=== PATIENT | female | born 1980 | race Caucasian/White ===

== ENCOUNTER 2017-11-10 12:07 | Outpatient (CLI) | payer OTHER ==
[~2017-11-10] VITALS: Ht 162.6 cm; Wt 86.8 kg
[~2017-11-10 12:07] MED LIST: PREN1TAB60 PO
[2017-11-10] MEDS ORDERED: TERBUTALINE 1 MG/ML, 1ML ONE (12:35)
[2017-11-10] MEDS ORDERED: PLEASE ENTER HEIGHT AND WEIGHT MC SCH (13:00)
[2017-11-10] MEDS ORDERED: TERBUTALINE 1 MG/ML, 1ML IV ONE (13:00)
== END 2017-11-10 14:11 | disposition home or self-care (01) ==
LOC: LDOP 12:07
PROVIDERS: ATTEND Obstetrics & Gynecology
DX: O09.523 Supervision of elderly multigravida, third trimester (principal); O32.2XX0 Maternal care for transverse and oblique lie, not applicable or unspecified; Z3A.37 37 weeks gestation of pregnancy
CPT/HCPCS: 59025; 99211; G0463

== ENCOUNTER 2017-11-23 06:00 | Inpatient (IN) | payer OTHER ==
[~2017-11-23] VITALS: Ht 162.6 cm; Wt 90.0 kg
[2017-11-23] MEDS ORDERED: OXYTOCIN 30U/ 0.9% NaCL 500ML 500 ML IV ONE (06:01)
[2017-11-23] MEDS ORDERED: OXYTOCIN 30U/ 0.9% NaCL 500ML 500 ML IV PRN (06:01)
[2017-11-23] MEDS: D5%-LACTATED RINGERS 1,000 ML IV SCH ×3 (06:01→22:01)
[2017-11-23] MEDS ORDERED: OXYTOCIN 30U/ 0.9% NaCL 500ML 500 ML ONE ×2 (06:05→15:28)
[2017-11-23] MEDS ORDERED: NEWBORN KIT ONE ×2 (06:05→06:58)
[2017-11-23 06:08] VITALS: BP 122/86
[2017-11-23] MEDS: LACTATED RINGERS 1,000 ML IV SCH ×5 (06:26→22:01)
[2017-11-23] MEDS ORDERED: FENTANYL PF 100 MCG/2ML IVPush PRN (06:30)
[2017-11-23] MEDS ORDERED: ONDANSETRON 2MG/ML, 2ML IVPush PRN (06:30)
[2017-11-23] MEDS ORDERED: FENTANYL PF 100 MCG/2ML IV PRN (06:30)
[2017-11-23 07:07] LABS: BASOPHILS # (AUTO) 0.03 x10^3/uL (0-0.1); BASOPHILS % (AUTO) 0 % (0-1); EOSINOPHILS # (AUTO) 0.08 x10^3/uL (0-0.4); EOSINOPHILS % (AUTO) 1 % (1-7); LYMPHOCYTES # (AUTO) 0.83 x10^3/uL (1-3.4); LYMPHOCYTES % (AUTO) 8 % (22-44); MD NO; MEAN CORPUSCULAR HEMOGLOBIN 29.7 pg (27.0-34.8); MEAN CORPUSCULAR VOLUME 87.4 fL (80-100); MEAN PLATELET VOLUME 8.6 fL (7.4-10.4); MONOCYTES # (AUTO) 0.52 x10^3/uL (0.2-0.8); MONOCYTES % (AUTO) 5 % (2-9); NEUTROPHILS # (AUTO) 9.25 x10^3/uL (1.8-6.8); NEUTROPHILS % (AUTO) 86 % (42-75); PLATELET COUNT 208 x10^3/uL (130-400); RED BLOOD COUNT 4.23 x10^6/uL (3.82-5.3); RED CELL DISTRIBUTION WIDTH 13.6 % (9.6-15.2)
[2017-11-23] MEDS ORDERED: ONDANSETRON 2MG/ML, 2ML ONE (07:07)
[2017-11-23] MEDS ORDERED: FENTANYL/BUPIV./NS/PF 250 ML EPIDCONT ONE (08:50)
[2017-11-23] MEDS ORDERED: BUPIVACAINE 0.25% ONE ×2 (08:50→14:12)
[2017-11-23] MEDS ORDERED: FENTANYL PF 100 MCG/2ML ONE (08:50)
[2017-11-23] MEDS: FENTANYL/BUPIV./NS/PF 250 ML EPIDCONT SCH (09:13)
[2017-11-23] MEDS ORDERED: LACTATED RINGERS 1,000 ML IVBOLUS PRN (09:30)
[2017-11-23] MEDS: OXYTOCIN 30U/ 0.9% NaCL 500ML 500 ML IV SCH (15:09)
[2017-11-23] MEDS ORDERED: IBUPROFEN 600 MG TABLET ONE (15:28)
[2017-11-23] MEDS ORDERED: ACETAMINOPHEN 325 MG TABLET PO PRN (15:30)
[2017-11-23] MEDS ORDERED: OXYcodone/APAP 5/325MG TABLET PO PRN (15:30)
[2017-11-23] MEDS ORDERED: MISOPROSTOL 200 MCG TABLET PR PRN (15:30)
[2017-11-23] MEDS ORDERED: ONDANSETRON 2MG/ML, 2ML IV PRN (15:30)
[2017-11-23] MEDS ORDERED: METHYLERGONOVINE 0.2 MG/ML IM PRN (15:30)
[2017-11-23] MEDS: IBUPROFEN 600 MG TABLET PO PRN ×2 (15:33→22:07)
[2017-11-23 17:20] VITALS: BP 129/80
[2017-11-23 19:10] VITALS: BP 135/75
[2017-11-23] MEDS: DOCUSATE 100 MG CAPSULE PO PRN (19:58)
[2017-11-23] MEDS: OXYcodone/APAP 5/325MG TABLET PO PRN (22:07)
[2017-11-24] MEDS: OXYTOCIN 30U/ 0.9% NaCL 500ML 500 ML IV SCH (01:09)
[2017-11-24] MEDS: LACTATED RINGERS 1,000 ML IV SCH ×2 (01:13→06:01)
[2017-11-24] MEDS: OXYcodone/APAP 5/325MG TABLET PO PRN ×3 (03:17→09:46)
[2017-11-24] MEDS: IBUPROFEN 600 MG TABLET PO PRN ×3 (03:17→15:17)
[2017-11-24 03:27] VITALS: BP 130/83
[2017-11-24 05:16] LABS: BASOPHILS # (AUTO) 0.03 x10^3/uL (0-0.1); BASOPHILS % (AUTO) 0 % (0-1); EOSINOPHILS # (AUTO) 0.13 x10^3/uL (0-0.4); EOSINOPHILS % (AUTO) 1 % (1-7); LYMPHOCYTES # (AUTO) 1.71 x10^3/uL (1-3.4); LYMPHOCYTES % (AUTO) 18 % (22-44); MD NO; MEAN CORPUSCULAR HEMOGLOBIN 30.1 pg (27.0-34.8); MEAN CORPUSCULAR HGB CONC 33.8 g/dL (32.4-35.8); MEAN CORPUSCULAR VOLUME 89.2 fL (80-100); MEAN PLATELET VOLUME 8.4 fL (7.4-10.4); MONOCYTES # (AUTO) 0.75 x10^3/uL (0.2-0.8); MONOCYTES % (AUTO) 8 % (2-9); NEUTROPHILS # (AUTO) 7.02 x10^3/uL (1.8-6.8); NEUTROPHILS % (AUTO) 73 % (42-75); PLATELET COUNT 224 x10^3/uL (130-400); RED BLOOD COUNT 3.99 x10^6/uL (3.82-5.3); RED CELL DISTRIBUTION WIDTH 13.7 % (9.6-15.2)
[2017-11-24] MEDS: D5%-LACTATED RINGERS 1,000 ML IV SCH (06:01)
[2017-11-24] MEDS: FENTANYL/BUPIV./NS/PF 250 ML EPIDCONT SCH (06:03)
[2017-11-24 08:20] VITALS: BP 124/83
[2017-11-24] MEDS ORDERED: PRENATAL VIT/IRON/FA 1 EACH TABLET PO SCH (09:00)
[2017-11-24] MEDS: DOCUSATE 100 MG CAPSULE PO PRN (09:42)
[2017-11-24] MEDS ORDERED: IBUP-1222 PO (14:09)
== END 2017-11-24 15:44 | disposition home or self-care (01) | DRG 775 ==
LOC: LDIP 06:00 → 2NW 17:15
PROVIDERS: ADMIT Obstetrics & Gynecology; ATTEND Obstetrics & Gynecology
PROC: 10E0XZZ Delivery of Products of Conception, External Approach (ICD-10-PCS; principal; 2017-11-23)
PROC: 3E0P3VZ Introduction of Hormone into Female Reproductive, Percutaneous Approach (ICD-10-PCS; 2017-11-23)
PROC: 3E0R3BZ Introduction of Anesthetic Agent into Spinal Canal, Percutaneous Approach (ICD-10-PCS; 2017-11-23)
PROC: 00HU33Z Insertion of Infusion Device into Spinal Canal, Percutaneous Approach (ICD-10-PCS; 2017-11-23)
DX: O80 Encounter for full-term uncomplicated delivery (principal); Z37.0 Single live birth; Z3A.39 39 weeks gestation of pregnancy
CPT/HCPCS: 36415; 85025; 86850; 86900; J2405; J2590; J7120

== ENCOUNTER 2019-01-29 20:53 | Emergency (ER) | payer OTHER ==
[~2019-01-29] VITALS: Ht 162.6 cm; Wt 69.6 kg
[~2019-01-29 20:53] MED LIST changes: +IBUP-1222 PO
[2019-01-29 21:34] LABS: BASOPHILS # (AUTO) 0.06 x10^3/uL (0-0.1); BASOPHILS % (AUTO) 1 % (0-1); EOSINOPHILS # (AUTO) 0.12 x10^3/uL (0-0.4); EOSINOPHILS % (AUTO) 2 % (1-7); LYMPHOCYTES # (AUTO) 0.69 x10^3/uL (1-3.4); LYMPHOCYTES % (AUTO) 12 % (22-44); MD NO; MEAN CORPUSCULAR HEMOGLOBIN 29.7 pg (27.0-34.8); MEAN CORPUSCULAR HGB CONC 34.1 g/dL (32.4-35.8); MEAN CORPUSCULAR VOLUME 87.2 fL (80-100); MEAN PLATELET VOLUME 8.2 fL (7.4-10.4); MONOCYTES # (AUTO) 0.33 x10^3/uL (0.2-0.8); MONOCYTES % (AUTO) 5 % (2-9); NEUTROPHILS # (AUTO) 4.81 x10^3/uL (1.8-6.8); NEUTROPHILS % (AUTO) 80 % (42-75); PLATELET COUNT 214 x10^3/uL (130-400); RED BLOOD COUNT 4.52 x10^6/uL (3.82-5.3); RED CELL DISTRIBUTION WIDTH 12.8 % (9.6-15.2)
[2019-01-29 21:41] LABS: MICROSCOPIC NOT IND
[2019-01-29 21:44] LABS: CULTURE INDICATED? NO
[2019-01-29 21:46] LABS: ALBUMIN 4.4 g/dL (3.4-5.0); ANION GAP 5 mmol/L (5-15); CALCIUM 8.6 mg/dL (8.5-10.1); CHLORIDE 109 mmol/L (98-107); CREATININE 0.84 mg/dL (0.55-1.02)
--- NOTE | 2019-01-29 21:47 | NUR ---
PT C/O TIREDNESS AND LOWER BACK PAIN, THINKS SHE MAY HAVE 'A UTI GONE WRONG'. PT PLACED ON PULSE OX TO MONITOR HR, GIVEN CALL LLIGHT, SAFETY MEASURES IN PLACE
--- NOTE | 2019-01-29 22:00 | NUR ---
PT TALKING WITH SISTER, NO DISTRESS NOTED
[2019-01-29 22:19] VITALS: BP 135/84
--- NOTE | 2019-01-29 22:20 | NUR ---
Patient/Caregiver given discharge instructions and they have confirmed that they understand the instructions. Patient ambulatory with steady gait.
== END 2019-01-29 22:23 | disposition home or self-care (01) ==
LOC: ED 22:05
DX: S39.012A Strain of muscle, fascia and tendon of lower back, initial encounter (principal); B34.9 Viral infection, unspecified; X58.XXXA Exposure to other specified factors, initial encounter; Y93.89 Activity, other specified; Y92.89 Other specified places as the place of occurrence of the external cause; Y99.8 Other external cause status
CPT/HCPCS: 36415; 80048; 81003; 82040; 84703; 85025; 99283

== ENCOUNTER 2019-01-31 17:33 | Emergency (ER) | payer OTHER ==
[~2019-01-31] VITALS: Ht 162.6 cm; Wt 67.7 kg
--- NOTE | 2019-01-31 18:12 | NUR ---
PT AMBULATED STEADILY TO ROOM FROM LOBBY WITH RN AND FRIEND.
--- NOTE | 2019-01-31 18:19 | NUR ---
PT CO [place] X TWO DAYS; FEVER "104" YESTERDAY. +SENSITIVITY TO NOISE; DENIES N/V/VISION CHANGES/NECK PAIN. FACE SYMMETRICAL, SPEECH CLEAR, +STRENGTH X4. PT REPORTS BEING SEEN IN ED 'A FEW DAYS AGO' FOR LBP AND RULE OUT UTI, "THOSE SYMPTOMS FEEL MUCH BETTER'. BP/SPO2/ECG MONITORING IN PLACE. NSR ON MONITOR. SO AT BEDSIDE.
[2019-01-31 18:23] LABS: BASOPHILS # (AUTO) 0.01 x10^3/uL (0-0.1); BASOPHILS % (AUTO) 0 % (0-1); EOSINOPHILS # (AUTO) 0.02 x10^3/uL (0-0.4); EOSINOPHILS % (AUTO) 1 % (1-7); LYMPHOCYTES # (AUTO) 1.14 x10^3/uL (1-3.4); LYMPHOCYTES % (AUTO) 38 % (22-44); MD NO; MEAN CORPUSCULAR HEMOGLOBIN 29.1 pg (27.0-34.8); MEAN CORPUSCULAR HGB CONC 33.3 g/dL (32.4-35.8); MEAN CORPUSCULAR VOLUME 87.3 fL (80-100); MEAN PLATELET VOLUME 8.8 fL (7.4-10.4); MONOCYTES % (AUTO) 13 % (2-9); NEUTROPHILS # (AUTO) 1.45 x10^3/uL (1.8-6.8); NEUTROPHILS % (AUTO) 48 % (42-75); PLATELET COUNT 197 x10^3/uL (130-400); RED CELL DISTRIBUTION WIDTH 12.3 % (9.6-15.2)
[2019-01-31 18:27] LABS: RAPID INFLUENZA A Negative (Negative); RAPID INFLUENZA B Negative (Negative)
[2019-01-31 18:32] LABS: ALANINE AMINOTRANSFERASE 24 U/L (12-78); ALBUMIN 4.3 g/dL (3.4-5.0); ANION GAP 4 mmol/L (5-15); CALCIUM 8.8 mg/dL (8.5-10.1); CHLORIDE 105 mmol/L (98-107); CREATININE 0.79 mg/dL (0.55-1.02)
[2019-01-31 18:33] LABS: ALKALINE PHOSPHATASE 58 U/L (45-117); BILIRUBIN,TOTAL 0.5 mg/dL (0.2-1.0); TOTAL PROTEIN 7.9 g/dL (6.4-8.2)
[2019-01-31] MEDS ORDERED: LIDOCAINE-MPF 1%, 5ML ONE (18:52)
--- NOTE | 2019-01-31 18:56 | NUR ---
SET UP READY FOR LP. CONSENT SIGNED AND AT BEDSIDE.
--- NOTE | 2019-01-31 19:06 | NUR ---
MELANIE STREETER AT BEDSIDE FOR LP.
[2019-01-31] MEDS ORDERED: DIAZEPAM 5 MG TABLET ONE (19:40)
--- NOTE | 2019-01-31 19:43 | NUR ---
LP COMPLETE. PT SUPINE. PT MEDICATED PER EMAR FOR W[place], 08/06
[2019-01-31 19:48] LABS: GLUCOSE, CSF 59 mg/dL (40-80); TOTAL PROTEIN,CSF 37 mg/dL (15-45)
[2019-01-31] MEDS ORDERED: LIDOCAINE-MPF 1%, 5ML INFIL ONE (20:00)
[2019-01-31] MEDS ORDERED: DIAZEPAM 5 MG TABLET PO ONE (20:00)
--- NOTE | 2019-01-31 20:32 | NUR ---
PT RESTING QUIETLY, DARKENED ROOM AND LAYING FLAT, REPORTS PAIN 7/10 WHICH SHE REPORTS IS AN IMPROVEMENT FROM HER PREVIOUS 08/06. NSR ON MONITOR WITHOUT ECTOPY
[2019-01-31 20:35] VITALS: BP 120/73
--- NOTE | 2019-01-31 21:40 | NUR ---
PT REPORTS SIGNIFICANT IMPROVEMENT IN [place] W/ MEDICATIONS. DC EDUCATION PROVIDED, PT DEMONSTRATES UNDERSTANDING. PT AMBULATED STEADILY TO DC WITH RN AND SO. SO TO TRANSPORT PT HOME.
== END 2019-01-31 21:42 | disposition home or self-care (01) ==
LOC: ED 18:34
DX: B34.9 Viral infection, unspecified (principal); G44.219 Episodic tension-type headache, not intractable; M79.10 Myalgia, unspecified site
CPT/HCPCS: 36415; 62270; 71045; 80053; 82945; 84157; 85025; 87070; 87205; 87252; 87400; 89051; 99284

== ENCOUNTER 2019-02-03 12:32 | Emergency (ER) | payer OTHER ==
[~2019-02-03] VITALS: Ht 162.6 cm; Wt 67.7 kg
[2019-02-03] MEDS ORDERED: ICN CAFFEINE 5 MG/ML IV IV STA (13:06)
[2019-02-03] MEDS ORDERED: METOCLOPRAMIDE 5 MG/ML, 2ML ONE (13:09)
[2019-02-03] MEDS ORDERED: DIPHENHYDRAMINE 50 MG/ML, 1ML ONE (13:09)
[2019-02-03 13:24] VITALS: BP 120/68
--- NOTE | 2019-02-03 13:25 | NUR ---
PT HERE FOR INCREASED EPISODES OF [place]. PT WAS SEEN HERE TWO DAYS AGO AND HAD EXTENSIVE WORKUP WITH SPIBNAL TAP. PT REPORTS INCREASED W[place] AND NAUSEA AND VERTIGO. PT ON ARRIVAL DOES NOT APPEAR UNCOMFORTABLE BUT DOES BECAOME LIGHTHEADED WITH POSITION CHANGING. PT CONNECTED TO MONITORS AND CALL LIGHT IN REACH. VSS. PIV PLACED.
[2019-02-03] MEDS ORDERED: SODIUM CHLORIDE 0.9% 1,000ML IVBOLUS ONE (13:30)
[2019-02-03] MEDS ORDERED: DIPHENHYDRAMINE 50 MG/ML, 1ML IVPush ONE (13:30)
[2019-02-03] MEDS ORDERED: METOCLOPRAMIDE 5 MG/ML, 2ML IVPush ONE (13:30)
--- NOTE | 2019-02-03 13:58 | NUR ---
MD AT THIS TIME DOES NOT WANT ORTHOSTATICS.
--- NOTE | 2019-02-03 14:39 | NUR ---
PT REPORTING RELIEF AT THIS TIME.
--- NOTE | 2019-02-03 15:03 | NUR ---
Patient/Caregiver given discharge instructions and they have confirmed that they understand the instructions. Patient ambulatory with steady gait.
== END 2019-02-03 15:05 | disposition home or self-care (01) ==
LOC: ED 13:39
DX: G97.1 Other reaction to spinal and lumbar puncture (principal)
CPT/HCPCS: 70450; 96374; 96375; 99284; J1200; J2765; J7030

== ENCOUNTER 2019-04-02 10:10 | Outpatient (CLI) | payer OTHER ==
[2019-04-02] MEDS ORDERED: NONE PER PT (10:47)
[2019-04-10] MEDS ORDERED: DIPHENHYDRAMINE 50 MG/ML, 1ML IVPush PRN (08:30)
[2019-04-10] MEDS ORDERED: FENTANYL PF 100 MCG/2ML IV PRN (08:30)
[2019-04-10] MEDS ORDERED: OXYcodone 5 MG/5 ML ORAL.SOL UDC PO PRN (08:30)
[2019-04-10] MEDS ORDERED: PROCHLORPERAZINE 5 MG/ML, 2ML IV PRN (08:30)
[2019-04-10] MEDS ORDERED: hydrALAzine 20 MG/ML, 1ML IV PRN (08:30)
[2019-04-10] MEDS ORDERED: MEPERIDINE/PF 25MG/0.5ML IVPush PRN (08:30)
[2019-04-10] MEDS ORDERED: LABETALOL 5MG/ML, 20ML IV PRN (08:30)
[2019-04-10] MEDS ORDERED: HALOPERIDOL 5 MG/ML IV PRN (08:30)
[2019-04-10] MEDS ORDERED: HYDROmorphone 2 MG/ML, 1ML IVPush PRN (08:30)
[2019-04-10] MEDS ORDERED: PROMETHAZINE 25 MG/ML, 1ML IV PRN (08:30)
[2019-04-10] MEDS ORDERED: METOPROLOL 1 MG/ML, 5ML IV PRN (08:30)
[2019-04-10] MEDS ORDERED: FENTANYL PF 100 MCG/2ML ONE ×2 (13:06→13:39)
== END 2019-04-02 23:59 | disposition home or self-care (01) ==
LOC: STAR 10:10
PROVIDERS: ATTEND Obstetrics & Gynecology
DX: Z02.9 Encounter for administrative examinations, unspecified (principal)

== ENCOUNTER 2021-05-29 17:20 | Emergency (ER) | payer OTHER ==
[~2021-05-29] VITALS: Ht 162.6 cm; Wt 68.9 kg
[~2021-05-29 17:20] MED LIST changes: +NONE PER PT
[2021-05-29 17:23] VITALS: BP 144/101
--- NOTE | 2021-05-29 18:17 | NUR ---
TASK RN: DC EDUCATION PROVIDED, PT DEMONSTRATES UNDERSTANDING. PT AMBULATED STEADILY TO DC WITH RN AND FAMILY
== END 2021-05-29 18:19 | disposition home or self-care (01) ==
LOC: ED 18:00
DX: M70.21 Olecranon bursitis, right elbow (principal)
CPT/HCPCS: 99282

== ENCOUNTER → 2021-06-07 | Outpatient (CLI) | payer OTHER ==
[~2021-06-07] MED LIST changes: +OMEP-110 PO; +VALA10004 PO
[2021-06-07 08:04] LABS: BASOPHILS % (AUTO) 1 % (0-1); EOSINOPHILS % (AUTO) 4 % (1-7); LYMPHOCYTES % (AUTO) 28 % (22-44); MEAN CORPUSCULAR HEMOGLOBIN 32.6 pg (27.0-34.8); MEAN CORPUSCULAR HGB CONC 34.7 g/dL (32.4-35.8); MEAN PLATELET VOLUME 8.5 fL (7.4-10.4); MONOCYTES % (AUTO) 7 % (2-9); NEUTROPHILS % (AUTO) 60 % (42-75); PLATELET COUNT 228 x10^3/uL (130-400); RED BLOOD COUNT 4.29 x10^6/uL (3.82-5.3); RED CELL DISTRIBUTION WIDTH 12.5 % (9.6-15.2)
[2021-06-07 08:10] LABS: CREATININE 0.79 mg/dL (0.55-1.02)
[2021-06-07 08:21] LABS: ANION GAP 4 mmol/L (5-15); CHLORIDE 107 mmol/L (98-107)
== END | disposition home or self-care (01) ==
LOC: STAR 07:16
PROVIDERS: ATTEND Obstetrics & Gynecology
DX: Z01.812 Encounter for preprocedural laboratory examination (principal); Z20.822 Contact with and (suspected) exposure to COVID-19; N92.0 Excessive and frequent menstruation with regular cycle
CPT/HCPCS: 36415; 80048; 84702; 85025; U0003; U0005

== ENCOUNTER 2021-06-11 13:23 | Day surgery (SDC) | payer OTHER ==
[~2021-06-11] VITALS: Ht 162.6 cm; Wt 67.4 kg
[2021-06-11] MEDS ORDERED: LACTATED RINGERS 1,000 ML IV SCH (13:30)
[2021-06-11 13:49] VITALS: BP 129/80
[2021-06-11] MEDS ORDERED: CHLORHEXIDINE 15 ML UDC ONE (13:51)
[2021-06-11] MEDS ORDERED: CHLORHEXIDINE 15 ML UDC PO ONE (14:00)
[2021-06-11 14:14] LABS: HCG UR SG 1.022 (1.003-1.030)
[2021-06-11] MEDS ORDERED: SILVER NITRATE STICK TP ONE (14:44)
[2021-06-11] MEDS ORDERED: BUPIVACAINE/PF 0.25% ONE (14:44)
[2021-06-11] MEDS ORDERED: ONDANSETRON 2MG/ML, 2ML ONE (14:58)
[2021-06-11] MEDS ORDERED: PROPOFOL 10 MG/ML, 20ML ONE (14:58)
[2021-06-11] MEDS ORDERED: DEXAMETHASONE 4 MG/ML, 1ML ONE (14:58)
[2021-06-11] MEDS ORDERED: FENTANYL PF 100 MCG/2ML ONE (14:58)
[2021-06-11] MEDS ORDERED: KETOROLAC 30 MG/1 ML ONE (14:58)
[2021-06-11] MEDS ORDERED: EPHEDRINE 50 MG/ML, 1ML ONE ×2 (14:58)
[2021-06-11] MEDS ORDERED: HYDROmorphone 1 MG/ML, 1ML INJ IVPush PRN (15:00)
[2021-06-11] MEDS ORDERED: HALOPERIDOL 5 MG/ML IV PRN (15:00)
[2021-06-11] MEDS ORDERED: FENTANYL PF 100 MCG/2ML IV PRN (15:00)
[2021-06-11] MEDS ORDERED: LABETALOL 5MG/ML, 20ML IV PRN (15:00)
[2021-06-11] MEDS ORDERED: DIPHENHYDRAMINE 50 MG/ML, 1ML IVPush PRN (15:00)
[2021-06-11] MEDS ORDERED: MEPERIDINE/PF 25MG/0.5ML IVPush PRN (15:00)
[2021-06-11] MEDS ORDERED: hydrALAzine 20 MG/ML, 1ML IV PRN (15:00)
[2021-06-11] MEDS ORDERED: PROMETHAZINE 25 MG/ML, 1ML IVPush PRN (15:00)
[2021-06-11] MEDS ORDERED: ACETAMINOPHEN 325 MG TABLET PO PRN (15:00)
[2021-06-11] MEDS ORDERED: OXYcodone 5 MG/5 ML ORAL.SOL UDC PO PRN (15:00)
== END 2021-06-11 16:40 | disposition home or self-care (01) ==
LOC: OR 13:23
PROVIDERS: ATTEND Obstetrics & Gynecology
DX: N92.0 Excessive and frequent menstruation with regular cycle (principal); K21.9 Gastro-esophageal reflux disease without esophagitis; Z79.899 Other long term (current) drug therapy; Z98.51 Tubal ligation status; Z98.890 Other specified postprocedural states; Z82.49 Family history of ischemic heart disease and other diseases of the circulatory system
CPT/HCPCS: 36415; 58563; 81025; 86850; 86900; J1100; J1885; J2405; J2704; J3010; J7120